=== PATIENT | female | born 1990 | race Caucasian/White ===

== ENCOUNTER 2016-12-06 02:49 | Emergency (ER) | payer SELFPAY ==
[~2016-12-06] VITALS: Ht 172.7 cm; Wt 59.0 kg
--- NOTE | 2016-12-06 03:22 | NUR ---
PT CAME IN FOR GLF RESULTING IN LACERATION AT POSTERIOR HEAD. PAIN EXPRESSED AT RIGHT SHOULDER, LEFT ELBOW AND LEFT HAND. A/O X3, ADMITS TO ETOH CONSUMPTION. NO S/S OF AMS. VITALS WNL.
--- NOTE | 2016-12-06 03:46 | NUR ---
PT TAKEN TO HEAD CT AND RETURNED TO ER BED 8. XRAYS COMPLETED.
[2016-12-06] MEDS ORDERED: LIDOCAINE /MPF 1% VIAL 5 ML VIAL ONE (04:17)
--- NOTE | 2016-12-06 04:31 | NUR ---
HEAD LACERATIONS CLEANED AND [address]ACED BY MD. NO CONTINUOUS BLEEDING NOTED.
[2016-12-06] MEDS ORDERED: IBUPROFEN 400 MG TABLET ONE (04:49)
[2016-12-06 04:54] VITALS: BP 127/85
--- NOTE | 2016-12-06 04:56 | NUR ---
PT GIVEN PAIN MED. PT GIVEN RX AND WOUND CARE INSTRUCTIONS. INSTRUCTED NOT TO DRIVE. VITALS WNL. ABLE TO AMBULATE WITH STEADY GAIT.
[2016-12-06] MEDS ORDERED: IBUPROFEN 400 MG TABLET PO ONE (05:00)
== END 2016-12-06 04:55 | disposition home or self-care (01) ==
LOC: ER 02:51
DX: S40.011A Contusion of right shoulder, initial encounter (principal); S01.01XA Laceration without foreign body of scalp, initial encounter; S60.222A Contusion of left hand, initial encounter; S10.93XA Contusion of unspecified part of neck, initial encounter; F10.129 Alcohol abuse with intoxication, unspecified; W01.198A Fall on same level from slipping, tripping and stumbling with subsequent striking against other object, initial encounter; Y93.01 Activity, walking, marching and hiking; Y92.89 Other specified places as the place of occurrence of the external cause; Y99.8 Other external cause status
CPT/HCPCS: 12001; 70450; 72050; 73030; 73130; 99284; A4217; A4606; A6403; J3490; Z7610